=== PATIENT | male | born 1980 | race Caucasian/White ===

== ENCOUNTER 2023-05-13 16:10 | Emergency (ER) | payer OTHER, SELFPAY ==
[2023-05-13 16:15] VITALS: BP 139/90
--- NOTE | 2023-05-13 17:00 | ED.GENMED ---
History of Present Illness
General
Chief Complaint: Musculo-Skeletal Complaint
Time Seen by Provider: 05/13/23 16:19
Travel History
Have you had any contact with someone who has COVID-19?: Yes
Comment: mother
Do you have any symptoms of coronavirus? Fever > 100 degrees, chills, cough, shortness of breath, sore throat, loss of taste or smell, muscle aches, or headache?: No
History of Present Illness
History of Present Illness:
42-year-old male with no significant past medical history presents to the emergency department for evaluation of a left wrist injury. He fell while rollerskating and fell onto an outstretched hand with the arm extended behind his torso. He was
seen in urgent care and diagnosed with a comminuted left distal radius fracture and sent to the emergency department for surgical intervention. Denies any weakness in the left hand but does have some paresthesias to the fingertips
Review of Systems
Review of Systems
Allergies reviewed?: Yes
All Other Systems: ROS reviewed and negative except as documented in HPI and ROS
Phy Exam
Physical Exam
Physical Exam:
GEN: Well appearing, NAD, WDWN
HEENT: Oral mucosa moist, no scleral icterus
Cardiac: Regular rate
Lung: No respiratory distress, no tachypnea
MSK: Obvious deformity of the left distal radius, sensation intact to all fingers with strong radial pulse.
Skin: Good color, no pallor or jaundice, no rashes
Neuro: AO x3, moves all extremities freely
Psych: Calm, cooperative
Course
Orders/Labs/Results
Orders:
Orders
05/13/23 16:30
CR Wrist - Left Min 3 Views Urgent
Comment:
Reason For Exam: wrist injury
Vital Signs
Initial and Last Documented VS:
Initial Vital Signs
Temp Pulse Resp BP Pulse Ox
97.7 F 78 16 139/90 99
05/13/23 16:15 05/13/23 16:15 05/13/23 16:15 05/13/23 16:15 05/13/23 16:15
Last Documented Vital Signs
Temp Pulse Resp BP Pulse Ox
97.7 F 78 16 139/90 99
05/13/23 16:15 05/13/23 16:15 05/13/23 16:15 05/13/23 16:15 05/13/23 16:15
MDM/Problems Addressed
MDM/Problems Addressed:
Urgent care splint removed and replaced with a an appropriately fitting sugar-tong splint. Unfortunately his x-rays from urgent care would not load on her imaging so repeat imagings were obtained. While this is a comminuted fracture there is no
benefit to closed reduction and he is neurovascularly intact. Will follow-up as an outpatient with orthopedics
*Critical Care Note
Total Time (30-74mins, 75-104mins- exclusive of procedures): Not Applicable
ED Attending Note
-
Portions of this chart may have been created with voice recognition software.� Occasional wrong word or��sound alike� substitutions may have occurred due to the inherent limitations of voice recognition software.
Discharge Plan
Departure
Patient Disposition: Home (Routine Discharge)
Date of Disposition: 05/13/23
Time of Disposition: 17:00
Patient with high blood pressure during this ER visit?: No
Discharge Problem:
Distal radius fracture, left
Instructions: Wrist Fracture (DC)
Referrals:
Heladio Bose MD [Active] - Call in 1-3 days for appt
Activity Restrictions/Additional Instructions:
If you develop increased numbness sensation in the fingers, or blue discoloration, return to the ER immediately
Interventions
Interventions:
*Nursing Disposition Last Done: 05/13/23 17:30
ED-Musculoskeletal Assessment Last Done: 05/13/23 17:26
Discharge Date and Time
Discharge Date/Time: 05/13/23 17:30
== END 2023-05-13 17:30 | disposition home or self-care (01) ==
LOC: EMR 16:10
PROVIDERS: EMERGENCY PHYSICIAN Emergency Medicine
DX: S52.592D Other fractures of lower end of left radius, subsequent encounter for closed fracture with routine healing (principal); R20.2 Paresthesia of skin; W19.XXXD Unspecified fall, subsequent encounter; Y93.51 Activity, roller skating (inline) and skateboarding
CPT/HCPCS: 99283; 29125; 73110

== ENCOUNTER 2023-05-15 06:33 | Day surgery (SDC) | payer OTHER, SELFPAY ==
[2023-05-15 09:45] VITALS: BMI 28.3
[2023-05-15 09:46] VITALS: BP 140/90
[2023-05-15] MEDS: NORMOSOL-R 1000 IV (10:00)
[2023-05-15] MEDS: CELEBREX 200 MG PO (10:00)
[2023-05-15] MEDS: TYLENOL 1000 MG PO (10:00)
[2023-05-15 13:03] VITALS: BP 131/75
[2023-05-15 13:15] VITALS: BP 132/93
[2023-05-15 13:30] VITALS: BP 128/93
[2023-05-15 13:45] VITALS: BP 129/78
[2023-05-15 14:00] VITALS: BP 123/86
== END 2023-05-15 14:20 | disposition home or self-care (01) ==
LOC: SDS 06:33
PROVIDERS: ATTENDING PHYSICIAN Orthopaedic Surgery
DX: S52.572A Other intraarticular fracture of lower end of left radius, initial encounter for closed fracture (principal); W19.XXXA Unspecified fall, initial encounter
CPT/HCPCS: 25608; C1713